=== PATIENT | male | born 1945 | race Caucasian/White ===

== ENCOUNTER 2018-04-01 07:10 | Outpatient (CLI) | payer MEDICARE ==
--- NOTE | 2018-04-01 09:17 | RAD ---
LUMBAR SPINE SERIES 5 VIEWS: HISTORY: Back pain. FINDINGS: Vertebral bodies are normal in height. Degenerative osteophytes are seen without significant disk na rrowing. Degenerative facet changes are noted. Pedicles are intact. Atherosclerotic changes of the aorta are noted. IMPRESSION: Mild arthritic changes of the spine. POS: [facility]
== END 2018-04-01 07:11 | disposition home or self-care (01) ==
LOC: MADRAD 07:10
PROVIDERS: ATTEND Neurological Surgery
DX: M47.26 Other spondylosis with radiculopathy, lumbar region (principal)
CPT/HCPCS: 72110

== ENCOUNTER 2018-12-22 13:12 | Outpatient (CLI) | payer MEDICARE ==
--- NOTE | 2018-12-22 13:42 | RAD ---
LUMBAR SPINE FIVE VIEWS: INDICATIONS: Postop followup. Back pain. FINDINGS: Lumbar vertebrae maintain normal height and alignment. The disk spaces are preserved. Mild degenera tive spurring. No evidence of spondylolisthesis or spondylolysis. Mild facet hypertrophy. The aort a is calcified and mildly ectatic, measuring up to 2.7 cm. IMPRESSION: 1. 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 2. 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 POS: [facility]
== END 2018-12-22 13:13 | disposition home or self-care (01) ==
LOC: MADRAD 13:12
PROVIDERS: ATTEND Neurological Surgery
DX: M54.5 Low back pain (principal); M47.816 Spondylosis without myelopathy or radiculopathy, lumbar region; I70.0 Atherosclerosis of aorta; I77.811 Abdominal aortic ectasia
CPT/HCPCS: 72110

== ENCOUNTER 2023-05-05 14:03 | Outpatient (CLI) | payer MEDICARE | END 2023-05-05 14:04 | disposition home or self-care (01) | LOC: MADRAD 14:03 | PROVIDERS: ATTEND Neurological Surgery | DX: M47.26 Other spondylosis with radiculopathy, lumbar region (principal) | CPT/HCPCS: 72110 ==

== ENCOUNTER 2025-07-15 11:52 | Outpatient (CLI) | payer MEDICARE | END 2025-07-15 11:53 | disposition home or self-care (01) | LOC: MADRAD 11:52 | PROVIDERS: ATTEND Neurological Surgery | DX: M50.021 Cervical disc disorder at C4-C5 level with myelopathy (principal); M50.022 Cervical disc disorder at C5-C6 level with myelopathy; M47.12 Other spondylosis with myelopathy, cervical region; M48.02 Spinal stenosis, cervical region; Z98.1 Arthrodesis status | CPT/HCPCS: 72040 ==